=== PATIENT | male | born 1955 | race Caucasian/White ===

== ENCOUNTER 2021-10-08 16:02 | Outpatient (CLI) | payer OTHER, MEDICARE | END 2021-10-08 16:03 | disposition home or self-care (01) | LOC: RAD 16:02 → ULT 16:03 | PROVIDERS: ATTEND Family Medicine | DX: M79.89 Other specified soft tissue disorders (principal); M79.605 Pain in left leg; R09.89 Other specified symptoms and signs involving the circulatory and respiratory systems | CPT/HCPCS: 71046; 93970 ==

== ENCOUNTER 2021-10-15 13:30 | Outpatient (CLI) | payer MEDICARE | END 2021-10-15 13:31 | disposition home or self-care (01) | LOC: ULT 13:30 | PROVIDERS: ATTEND Family Medicine | DX: N17.9 Acute kidney failure, unspecified (principal) | CPT/HCPCS: 76770; 81001; 87086 ==

== ENCOUNTER 2021-10-26 11:52 | Outpatient (CLI) | payer MEDICARE ==
[2021-10-26 13:05] LABS: Hemoglobin 13.1 g/dL (13.5-17.5); Mean Corpuscular HGB CONC 33.9 g/dL (32.0-36.0); Mean Corpuscular Hemoglobin 32.2 pg (27.0-33.0); Mean Corpuscular Volume 94.8 fl (81.2-95.1); Mean Platelet Volume 9.9 fl (7.4-10.4); Platelet Count 196 10x3/uL (150-450); RBC Distribution Width 13.3 % (11.5-14.5); Red Blood Cell (RBC) Count 4.07 10x6/uL (4.32-5.72); White Blood Cell (WBC) Count 8.5 10x3/uL (3.5-10.5)
[2021-10-26 13:25] LABS: Anion Gap 12 mmol/L (10-20); BUN (Urea Nitrogen) 18 mg/dL (8.4-25.7); Calc. Creatinine Clearance 0 mL/min (70-130); Carbon Dioxide 30 mmol/L (23-31); Chloride 102 mmol/L (98-107); Glucose 146 mg/dL (80-115); Potassium 4.4 mmol/L (3.5-5.1); Sodium 140 mmol/L (136-145)
== END 2021-10-26 11:53 | disposition home or self-care (01) ==
LOC: LABBT 11:52
PROVIDERS: ATTEND Urology
DX: Z01.818 Encounter for other preprocedural examination (principal); Z20.822 Contact with and (suspected) exposure to COVID-19
CPT/HCPCS: 80048; 85027; 93005; U0003; U0005; 93010

== ENCOUNTER 2021-10-30 10:14 | Day surgery (SDC) | payer MEDICARE ==
[2021-10-29 11:01] VITALS: BMI 20.7
[2021-10-30] MEDS ORDERED: Lidocaine 1% MPF 2 ML VIAL ONE (10:43)
[2021-10-30] MEDS ORDERED: Levofloxacin 500 mg/D5W 100 ml Premix Bag ONE (10:43)
[2021-10-30] MEDS ORDERED: Bupivacaine 0.25% HCL 30 ML VIAL ONE (12:22)
[2021-10-30] MEDS ORDERED: Fentanyl 100 MCG/2 ML VIAL ONE (12:26)
[2021-10-30] MEDS ORDERED: Lidocaine 1% PF 5 ML VIAL ONE (12:27)
[2021-10-30] MEDS ORDERED: PROPOFOL 200 MG/20 ML VIAL ONE ×2 (12:27)
[2021-10-30] MEDS ORDERED: PHENYLEPHRINE-NS 100 MCG/ML 10 ML SYRINGE ONE (12:27)
[2021-10-30] MEDS ORDERED: Ondansetron PF 4 MG/2 ML Vial ONE (12:27)
[2021-10-30] MEDS ORDERED: Dexamethasone 20 MG/5 ML VIAL ONE (12:27)
[2021-10-30] MEDS ORDERED: HYDROmorphone 2 MG/ML VIAL SLOW IVP PRN (13:31)
[2021-10-30] MEDS ORDERED: Morphine Sulfate 2 MG/ML SYRINGE SLOW IVP PRN (13:31)
[2021-10-30] MEDS ORDERED: Ondansetron HCl/PF 4 MG/2 ML Vial IVP PRN (13:31)
[2021-10-30] MEDS ORDERED: Promethazine HCl 25 MG/ML VIAL IVPB PRN (13:31)
[2021-10-30] MEDS ORDERED: Meperidine HCl/PF 25 MG/ML VIAL SLOW IVP PRN (13:31)
[2021-10-30] MEDS ORDERED: Promethazine HCl 25 MG/ML VIAL IM PRN (13:31)
[2021-10-30] MEDS ORDERED: Oxybutynin 5 MG TAB ONE (13:56)
[2021-10-30] MEDS ORDERED: Phenazopyridine HCl 100 MG TAB ONE (13:56)
== END 2021-10-30 15:02 | disposition home or self-care (01) ==
LOC: SDC 10:14
PROVIDERS: ATTEND Urology
PROC: 0T9B30Z Drainage of Bladder with Drainage Device, Percutaneous Approach (ICD-10-PCS; principal; 2021-10-30)
PROC: 0VT08ZZ Resection of Prostate, Via Natural or Artificial Opening Endoscopic (ICD-10-PCS; principal; 2021-10-30)
DX: N40.1 Benign prostatic hyperplasia with lower urinary tract symptoms (principal); N32.89 Other specified disorders of bladder; N13.8 Other obstructive and reflux uropathy; R33.8 Other retention of urine; J44.9 Chronic obstructive pulmonary disease, unspecified; G47.30 Sleep apnea, unspecified; F17.210 Nicotine dependence, cigarettes, uncomplicated; Z79.899 Other long term (current) drug therapy; Z88.5 Allergy status to narcotic agent
CPT/HCPCS: 88305; J1100; J1956; J2405; J2704; J3010; S0020

== ENCOUNTER 2022-12-27 19:26 | Emergency (ER) | payer MEDICARE ==
[2022-12-27 20:24] LABS: #Eosinphils 0.1 thou/uL (0.0-0.7); #Monocytes 0.9 thou/uL (0.11-0.59); #Neutrophils 6.4 thou/uL (1.40-6.50); %Basophils 0.2 % (0.0-1.0); %Eosinophils 0.7 % (0.0-10.0); %Lymphocytes 20.7 % (21.0-51.0); %Monocytes 9.8 % (0.0-10.0); %Neutrophils 68.1 % (42.0-75.0); Hematocrit 38.3 % (42.0-52.0); Hemoglobin 12.8 g/dL (14.0-18.0); Mean Corpuscular HGB CONC 33.4 g/dL (32.0-36.0); Mean Corpuscular Hemoglobin 32.7 pg (27.0-31.0); Mean Corpuscular Volume 97.7 fl (78.0-98.0); Mean Platelet Volume 10.1 fL (7.4-10.4); Platelet Count 141 10x3/uL (130-400); RBC Distribution Width 14.2 % (11.5-14.5); Red Blood Cell (RBC) Count 3.92 mill/uL (4.70-6.10); White Blood Cell (WBC) Count 9.4 10x3/uL (4.8-10.8)
[2022-12-27 20:41] LABS: Troponin I Less than 0.010 ng/mL (< 0.028)
[2022-12-27 20:42] LABS: ALT (SGPT) 10 U/L (8-55); AST (SGOT) 13 U/L (5-34); Alkaline Phosphatase 67 U/L (40-110); Anion Gap 15 mmol/L (10-20); BUN (Urea Nitrogen) 20 mg/dL (8.4-25.7); Bilirubin, Total 0.5 mg/dL (0.2-1.2); Calc. Creatinine Clearance 0 mL/min (70-130); Calcium 8.7 mg/dL (7.8-10.44); Carbon Dioxide 26 mmol/L (23-31); Chloride 100 mmol/L (98-107); Estimated GFR 37; Globulin 2.7 g/dL (2.4-3.5); Glucose 103 mg/dL (80-115); Lipase 26 U/L (8-78); Potassium 4.1 mmol/L (3.5-5.1); Protein, Total 6.7 g/dL (5.8-8.1); Sodium 137 mmol/L (136-145)
[2022-12-27] MEDS ORDERED: fentaNYL 50 mcg/mL 1 mL Vial ONE (21:02)
[2022-12-27 22:37] LABS: Bacteria/HPF None Seen HPF (None Seen); Bilirubin Negative (Negative); Blood, Urine 1+ (Negative); CAUTI Indications for Culture Pelvic or flank pain; Clarity Clear (Clear); Glucose, Urine (Dipstick) Normal (Negative); Ketone, Urine Negative (Negative); Leukocyte Negative Leu/uL (Negative); Nitrite Negative (Negative); Protein, Urine (Dipstick) 10 mg/dL (Neg-Trace); Specific Gravity, Urine 1.018 (1.002-1.036); Sperm/HPF Rare HPF (None Seen); Squamous Epithelial 0-3 HPF (0-3); Urobilinogen Normal mg/dL (Less than 2); WBC/HPF 0-3 HPF (0-3)
[2022-12-27 22:38] LABS: Urine Culture Reflex No No
[2022-12-28] MEDS ORDERED: Doxycycline 100 MG CAP ONE (01:24)
== END 2022-12-28 01:32 | disposition home or self-care (01) ==
LOC: ERS 19:26
DX: J18.9 Pneumonia, unspecified organism (principal); R10.9 Unspecified abdominal pain; F17.210 Nicotine dependence, cigarettes, uncomplicated
CPT/HCPCS: 74176; 76705; 80053; 81001; 83690; 84484; 85025; 93005; J3010; 36415; 96374

== ENCOUNTER 2023-07-31 21:03 | Emergency (ER) | payer MEDICARE ==
[~2023-07-31 21:03] MED LIST: Iopamidol-370 76% 500 ML MDV (1 ML CHARGE) ONE
[2023-07-31 21:46] LABS: #Basophils 0.03 10x3/uL (0.0-0.2); %Basophils 0.5 % (0.0-1.0); %Eosinophils 2.3 % (0.0-10.0); %Lymphocytes 42.1 % (21.0-51.0); %Monocytes 10.3 % (0.0-10.0); %Neutrophils 44.8 % (42.0-75.0); Hematocrit 37.5 % (42.0-52.0); Mean Corpuscular HGB CONC 34.7 g/dL (32.0-36.0); Mean Corpuscular Hemoglobin 33.2 pg (27.0-31.0); Mean Corpuscular Volume 95.9 fL (78.0-98.0); Mean Platelet Volume 10.3 fL (7.4-10.4); Platelet Count 141 10x3/uL (130-400); Red Blood Cell (RBC) Count 3.91 mill/uL (4.70-6.10)
[2023-07-31 22:00] LABS: ALT (SGPT) 11 U/L (8-55); AST (SGOT) 15 U/L (5-34); Alkaline Phosphatase 55 U/L (40-110); Anion Gap 12 mmol/L (10-20); BUN (Urea Nitrogen) 17 mg/dL (8.4-25.7); Bilirubin, Total 0.3 mg/dL (0.2-1.2); Calc. Creatinine Clearance 0 mL/min (70-130); Calcium 9.3 mg/dL (7.8-10.44); Carbon Dioxide 31 mmol/L (23-31); Chloride 97 mmol/L (98-107); Estimated GFR 62; Globulin 2.6 g/dL (2.4-3.5); Glucose 98 mg/dL (80-115); Lipase 49 U/L (8-78); Magnesium 1.8 mg/dL (1.6-2.6); Potassium 3.5 mmol/L (3.5-5.1); Protein, Total 6.6 g/dL (5.8-8.1); Sodium 136 mmol/L (136-145)
[2023-07-31] MEDS ORDERED: Acetaminophen 500 MG TAB ONE (22:01)
[2023-07-31 22:04] LABS: Troponin I Less than 0.010 ng/mL (< 0.028)
[2023-07-31 22:07] LABS: Prothrombin Time 13.6 sec (12.0-14.7)
[2023-07-31 22:08] LABS: PTT 31.3 sec (22.9-36.1)
== END 2023-08-01 01:15 | disposition home or self-care (01) ==
LOC: ERS 21:03
DX: R51.9 Headache, unspecified (principal); I71.40 Abdominal aortic aneurysm, without rupture, unspecified; F17.210 Nicotine dependence, cigarettes, uncomplicated; Z55.6 Problems related to health literacy; Z75.8 Other problems related to medical facilities and other health care
CPT/HCPCS: 70450; 71045; 71275; 74174; 80053; 83690; 83735; 84484; 85025; 85610; 85730; 86850; 86900; 86901; 93005; Q9967

== ENCOUNTER 2023-09-05 08:30 | Inpatient (IN) | payer MEDICARE ==
[2023-09-10 09:50] LABS: Hematocrit 43.4 % (38.8-50.0); Hemoglobin 15.1 g/dL (13.5-17.5); Mean Corpuscular HGB CONC 34.8 g/dL (32.0-36.0); Mean Corpuscular Hemoglobin 33.6 pg (27.0-33.0); Mean Corpuscular Volume 96.7 fl (81.2-95.1); Mean Platelet Volume 10.5 fl (7.4-10.4); Platelet Count 173 10x3/uL (150-450); RBC Distribution Width 13.2 % (11.5-14.5); Red Blood Cell (RBC) Count 4.49 10x6/uL (4.32-5.72); White Blood Cell (WBC) Count 5.7 10x3/uL (3.5-10.5)
[2023-09-10 10:23] LABS: Anion Gap 11 mmol/L (10-20); BUN (Urea Nitrogen) 13 mg/dL (8.4-25.7); Calc. Creatinine Clearance 0 mL/min (70-130); Calcium 9.5 mg/dL (7.8-10.44); Carbon Dioxide 33 mmol/L (23-31); Chloride 100 mmol/L (98-107); Estimated GFR 59; Glucose 103 mg/dL (80-115); Potassium 4.3 mmol/L (3.5-5.1); Sodium 140 mmol/L (136-145)
[2023-09-12] MEDS ORDERED: Heparin 10,000 UNITS/ 10 ML VIAL ONE ×2 (08:10→08:38)
[2023-09-12] MEDS ORDERED: Lidocaine 2% PF 5 ML VIAL ONE (08:10)
[2023-09-12] MEDS ORDERED: fentaNYL PF 100 MCG/2 ML SYRINGE ONE (08:10)
[2023-09-12] MEDS ORDERED: Phenylephrine 10 MG/ML VIAL ONE (08:10)
[2023-09-12] MEDS ORDERED: Sodium Chloride 0.9% 250 ML 250 ML ONE (08:10)
[2023-09-12] MEDS ORDERED: CEFAZOLIN 1 GM VIAL ONE (08:10)
[2023-09-12] MEDS ORDERED: Rocuronium Bromide 10 MG/ML (10ML VIAL) ONE (08:10)
[2023-09-12] MEDS ORDERED: Dexamethasone 20 MG/5 ML VIAL ONE (08:10)
[2023-09-12] MEDS ORDERED: Midazolam HCl 2 mg/2 ml Vial ONE (08:10)
[2023-09-12] MEDS ORDERED: ePHEDrine Sulfate 50 MG/10 ML VIAL ONE (08:10)
[2023-09-12] MEDS ORDERED: Lidocaine 2% PF 100 mg/5 ml Syringe ONE (08:10)
[2023-09-12] MEDS ORDERED: PROPOFOL 20 ML ONE (08:10)
[2023-09-12] MEDS ORDERED: SUGAMMADEX SODIUM 200 MG/2 ML VIAL ONE ×2 (08:11→11:00)
[2023-09-12] MEDS ORDERED: Sodium Chloride 0.9% 0 ML ONE (08:21)
[2023-09-12] MEDS ORDERED: Lidocaine 1% MPF 2 ML VIAL ONE (08:22)
[2023-09-12] MEDS ORDERED: EPINEPHrine 1 MG/ML VIAL ONE (08:38)
[2023-09-12] MEDS ORDERED: Bupivacaine PF 0.5% 30 ML VIAL ONE (08:39)
[2023-09-12] MEDS ORDERED: hydrALAZINE 20 MG/ML VIAL SLOW IVP PRN (11:09)
[2023-09-12] MEDS ORDERED: Ipratropium/Albuterol 3 ML NEB NEB PRN (11:09)
[2023-09-12] MEDS ORDERED: fentaNYL 50 mcg/mL 1 mL Vial SLOW IVP PRN (11:09)
[2023-09-12] MEDS ORDERED: fentaNYL 50 mcg/mL 1 mL Vial ONE ×2 (11:14→11:45)
[2023-09-12] MEDS ORDERED: Phenylephrine 40 MG/NS 250 ML 40 MG in Premix 1 BAG IVPB PRN (11:22)
[2023-09-12] MEDS: Sodium Chloride 0.9% 1,000 ML IV SCH (11:40)
[2023-09-12] MEDS: CEFAZOLIN 2 GM in Sodium Chloride 0.9% 100 ML IVPB SCH (16:33)
[2023-09-12 17:00] VITALS: BP 140/84
[2023-09-12 17:04] VITALS: BMI 19.6
[2023-09-12] MEDS: fentaNYL 50 mcg/mL 1 mL Vial SLOW IVP PRN (18:40)
[2023-09-12] MEDS: traMADol HCl 50 MG TAB PO PRN (19:35)
[2023-09-12] MEDS: rOPINIRole HCl 1 MG TAB PO SCH (20:01)
[2023-09-12] MEDS: Acetaminophen 325 MG TAB PO PRN (20:25)
[2023-09-13] MEDS: Ondansetron PF 4 MG/2 ML Vial IVP PRN (01:46)
[2023-09-13] MEDS: traMADol HCl 50 MG TAB PO PRN (05:05)
[2023-09-13 06:26] LABS: #Basophils Less than 0.03 10x3/uL (0.0-0.2); #Eosinphils Less than 0.03 10x3/uL (0.0-0.7); %Basophils 0.2 % (0.0-1.0); %Eosinophils 0.2 % (0.0-10.0); %Lymphocytes 16.4 % (21.0-51.0); %Monocytes 8.8 % (0.0-10.0); %Neutrophils 73.9 % (42.0-75.0); Hematocrit 36.4 % (42.0-52.0); Hemoglobin 12.5 g/dL (14.0-18.0); Mean Corpuscular HGB CONC 34.3 g/dL (32.0-36.0); Mean Corpuscular Hemoglobin 32.6 pg (27.0-31.0); Mean Platelet Volume 10.2 fL (7.4-10.4); Platelet Count 121 10x3/uL (130-400); RBC Distribution Width 13.2 % (11.5-14.5); Red Blood Cell (RBC) Count 3.83 mill/uL (4.70-6.10)
[2023-09-13 06:29] LABS: Anion Gap 11 mmol/L (10-20); BUN (Urea Nitrogen) 18 mg/dL (8.4-25.7); Calc. Creatinine Clearance 53 mL/min (70-130); Calcium 8.6 mg/dL (7.8-10.44); Carbon Dioxide 28 mmol/L (23-31); Chloride 104 mmol/L (98-107); Estimated GFR 57; Glucose 115 mg/dL (80-115); Potassium 4.3 mmol/L (3.5-5.1); Sodium 139 mmol/L (136-145)
[2023-09-13 07:35] VITALS: BMI 19.7
[2023-09-13 08:24] VITALS: TEMP 97.7
[2023-09-13] MEDS: Aspirin 325 mg Enteric Coated Tablet PO SCH (08:47)
[2023-09-13] MEDS: Pantoprazole DR 40 MG TAB PO SCH (08:47)
== END 2023-09-13 11:30 | disposition home or self-care (01) | DRG 269 ==
LOC: SURG A 09-12 07:23 → CCU 09-12 15:26
PROVIDERS: ADMIT Thoracic Surgery (Cardiothoracic Vascular Surgery); ATTEND Thoracic Surgery (Cardiothoracic Vascular Surgery)
PROC: 04V03EZ Restriction of Abdominal Aorta with Branched or Fenestrated Intraluminal Device, One or Two Arteries, Percutaneous Approach (ICD-10-PCS; principal; 2023-09-12)
PROC: 3E033XZ Introduction of Vasopressor into Peripheral Vein, Percutaneous Approach (ICD-10-PCS; 2023-09-12)
DX: I71.40 Abdominal aortic aneurysm, without rupture, unspecified (principal); F17.210 Nicotine dependence, cigarettes, uncomplicated; Z79.899 Other long term (current) drug therapy; Z90.89 Acquired absence of other organs; Z98.890 Other specified postprocedural states; Z90.79 Acquired absence of other genital organ(s); Z82.49 Family history of ischemic heart disease and other diseases of the circulatory system; Z88.2 Allergy status to sulfonamides; Z88.8 Allergy status to other drugs, medicaments and biological substances
CPT/HCPCS: 36415; 80048; 85025; 85027; 86850; 86900; 86901; C1725; C1769; C1889; J0171; J0665; J0690; J1100; J1642; J1644; J2001; J2250; J2371; J2405; J2704; J3010; J3490; J7050

== ENCOUNTER 2023-11-28 13:14 | Outpatient (CLI) | payer MEDICARE | END 2023-11-28 13:15 | disposition home or self-care (01) | LOC: ULT 13:14 | PROVIDERS: ATTEND Family Medicine | DX: N32.0 Bladder-neck obstruction (principal); N32.89 Other specified disorders of bladder; N26.1 Atrophy of kidney (terminal) | CPT/HCPCS: 76770 ==

== ENCOUNTER 2024-02-23 18:51 | Observation (INO) | payer MEDICARE ==
[2024-02-23 20:07] LABS: #Basophils 0.03 10x3/uL (0.0-0.2); %Basophils 0.6 % (0.0-1.0); %Eosinophils 3.2 % (0.0-10.0); %Lymphocytes 37.1 % (21.0-51.0); %Monocytes 13.7 % (0.0-10.0); %Neutrophils 45.2 % (42.0-75.0); Hematocrit 39.2 % (42.0-52.0); Mean Corpuscular HGB CONC 33.2 g/dL (32.0-36.0); Mean Corpuscular Hemoglobin 32.3 pg (27.0-31.0); Mean Corpuscular Volume 97.5 fL (78.0-98.0); Mean Platelet Volume 9.9 fL (7.4-10.4); Platelet Count 153 10x3/uL (130-400); Red Blood Cell (RBC) Count 4.02 mill/uL (4.70-6.10)
[2024-02-23 20:24] LABS: ALT (SGPT) 8 U/L (8-55); AST (SGOT) 13 U/L (5-34); Albumin 3.6 g/dL (3.4-4.8); Alkaline Phosphatase 60 U/L (40-110); Anion Gap 10 mmol/L (10-20); BUN (Urea Nitrogen) 19 mg/dL (8.4-25.7); Bilirubin, Total 0.3 mg/dL (0.2-1.2); Calc. Creatinine Clearance 0 mL/min (70-130); Carbon Dioxide 31 mmol/L (23-31); Chloride 101 mmol/L (98-107); Estimated GFR 50; Globulin 3.2 g/dL (2.4-3.5); Glucose 112 mg/dL (80-115); Potassium 4.1 mmol/L (3.5-5.1); Protein, Total 6.8 g/dL (5.8-8.1); Sodium 138 mmol/L (136-145)
[2024-02-23] MEDS ORDERED: Cefepime 2 GM VIAL ONE (20:29)
[2024-02-23] MEDS ORDERED: Ondansetron PF 4 MG/2 ML Vial IVP PRN (22:31)
[2024-02-23] MEDS ORDERED: Acetaminophen 650 MG Suppository PR PRN (22:31)
[2024-02-23] MEDS ORDERED: Ondansetron ODT 4 MG TAB PO PRN (22:31)
[2024-02-23] MEDS ORDERED: Senokot S 8.6-50 MG TAB PO PRN (22:31)
[2024-02-23] MEDS ORDERED: Albuterol 200 PUFF INH INH PRN (22:35)
[2024-02-23] MEDS: Vancomycin (BATCH) 1.75 GM in Premix 1 BAG IVPB SCH (23:08)
[2024-02-23] MEDS: Acetaminophen 325 MG TAB PO PRN (23:09)
[2024-02-23 23:18] VITALS: BMI 18.7
[2024-02-24 05:24] LABS: #Basophils 0.04 10x3/uL (0.0-0.2); %Basophils 0.7 % (0.0-1.0); %Eosinophils 3.2 % (0.0-10.0); %Lymphocytes 37.5 % (21.0-51.0); %Monocytes 11.1 % (0.0-10.0); %Neutrophils 47.3 % (42.0-75.0); Hematocrit 37.6 % (42.0-52.0); Hemoglobin 12.8 g/dL (14.0-18.0); Mean Platelet Volume 10.2 fL (7.4-10.4); Platelet Count 148 10x3/uL (130-400); RBC Distribution Width 13.9 % (11.5-14.5)
[2024-02-24 05:45] LABS: Vancomycin, Random 17.9 ug/mL (See Comment)
[2024-02-24 05:47] LABS: Anion Gap 9 mmol/L (10-20); BUN (Urea Nitrogen) 20 mg/dL (8.4-25.7); Calc. Creatinine Clearance 43 mL/min (70-130); Calcium 8.6 mg/dL (7.8-10.44); Carbon Dioxide 28 mmol/L (23-31); Chloride 107 mmol/L (98-107); Estimated GFR 47; Glucose 104 mg/dL (80-115); Potassium 4.1 mmol/L (3.5-5.1); Sodium 140 mmol/L (136-145)
[2024-02-24 08:31] VITALS: BP 143/90; TEMP 97.8
[2024-02-24] MEDS ORDERED: Vancomycin 1 GM in Sodium Chloride 0.9% 250 ML 250 ML IVPB SCH (09:00)
[2024-02-24] MEDS: Enoxaparin 40 MG (0.4 mL) SYRINGE SC SCH (09:01)
[2024-02-24] MEDS: Cefepime 1 GM in Sodium Chloride 0.9% 100 ML IVPB SCH (09:02)
[2024-02-24] MEDS: Lisinopril 10 MG TAB PO SCH (09:03)
[2024-02-24] MEDS: Pantoprazole DR 40 MG TAB PO SCH (09:03)
[2024-02-24 14:08] VITALS: BMI 18.7
[2024-02-24] MEDS ORDERED: Vancomycin (BATCH) 1.25 GM in Premix 1 BAG IVPB SCH (21:00)
[2024-02-24] MEDS ORDERED: Vancomycin 1 GM in Premix 1 BAG IVPB SCH (21:00)
== END 2024-02-24 15:57 | disposition home or self-care (01) ==
LOC: ERS 18:51 → T4-A 21:22
PROVIDERS: ADMIT Family Medicine; ATTEND Family Medicine
DX: L03.116 Cellulitis of left lower limb (principal); I10 Essential (primary) hypertension; J44.9 Chronic obstructive pulmonary disease, unspecified; K21.9 Gastro-esophageal reflux disease without esophagitis; F17.200 Nicotine dependence, unspecified, uncomplicated; Z86.79 Personal history of other diseases of the circulatory system; Z90.49 Acquired absence of other specified parts of digestive tract; Z90.89 Acquired absence of other organs; Z90.79 Acquired absence of other genital organ(s); Z98.890 Other specified postprocedural states; Z88.5 Allergy status to narcotic agent; Z79.2 Long term (current) use of antibiotics; Z79.899 Other long term (current) drug therapy
CPT/HCPCS: 73630; 80048; 80053; 80202; 83605; 85025 ×2; 87040; 96365; 96368; 96372; 96374; 97139; 99285; G0378 ×3; J0692 ×2; J1650; J3370; 36415; 96376

== ENCOUNTER 2024-12-20 10:01 | Outpatient (CLI) | payer MEDICARE | END 2024-12-20 10:02 | disposition home or self-care (01) | LOC: BICULT 10:01 | PROVIDERS: ATTEND Internal Medicine Gastroenterology | DX: R10.10 Upper abdominal pain, unspecified (principal) | CPT/HCPCS: 76705 ==

== ENCOUNTER 2025-03-22 07:10 | Day surgery (SDC) | payer MEDICARE ==
[2025-03-21 10:07] VITALS: BMI 18.5
[2025-03-22] MEDS ORDERED: PROPOFOL 200 MG/20 ML VIAL ONE (09:20)
== END 2025-03-22 11:17 | disposition home or self-care (01) ==
LOC: SDC 07:10
PROVIDERS: ATTEND Internal Medicine Gastroenterology
PROC: 0DB98ZX Excision of Duodenum, Via Natural or Artificial Opening Endoscopic, Diagnostic (ICD-10-PCS; principal; 2025-03-22)
PROC: 0DB78ZX Excision of Stomach, Pylorus, Via Natural or Artificial Opening Endoscopic, Diagnostic (ICD-10-PCS; 2025-03-22)
PROC: 0DBK8ZZ Excision of Ascending Colon, Via Natural or Artificial Opening Endoscopic (ICD-10-PCS; 2025-03-22)
PROC: 0DBL8ZZ Excision of Transverse Colon, Via Natural or Artificial Opening Endoscopic (ICD-10-PCS; 2025-03-22)
PROC: 0DBN8ZZ Excision of Sigmoid Colon, Via Natural or Artificial Opening Endoscopic (ICD-10-PCS; 2025-03-22)
DX: D12.2 Benign neoplasm of ascending colon (principal); D12.3 Benign neoplasm of transverse colon; D12.5 Benign neoplasm of sigmoid colon; D72.820 Lymphocytosis (symptomatic); K44.9 Diaphragmatic hernia without obstruction or gangrene; K57.30 Diverticulosis of large intestine without perforation or abscess without bleeding; K29.50 Unspecified chronic gastritis without bleeding; K31.A12 Gastric intestinal metaplasia without dysplasia, involving the body (corpus); K51.40 Inflammatory polyps of colon without complications; K29.70 Gastritis, unspecified, without bleeding; Z88.5 Allergy status to narcotic agent
CPT/HCPCS: 43239; 45385; J2704; 88305; 88342

== ENCOUNTER 2025-05-02 07:28 | Outpatient (CLI) | payer MEDICARE ==
[2025-05-02] MEDS ORDERED: Sincalide 5 MCG VIAL ONE (09:04)
[2025-05-02] MEDS ORDERED: Bacteriostatic Normal Saline 30 ML VIAL ONE (09:05)
== END 2025-05-02 07:29 | disposition home or self-care (01) ==
LOC: NM 07:28
PROVIDERS: ATTEND Internal Medicine Gastroenterology
DX: D12.6 Benign neoplasm of colon, unspecified (principal); B96.81 Helicobacter pylori [H. pylori] as the cause of diseases classified elsewhere; R11.0 Nausea; R10.10 Upper abdominal pain, unspecified
CPT/HCPCS: 78227; A9537; J2805